=== PATIENT | male | born 1975 | race Caucasian/White ===

== ENCOUNTER 2019-05-24 22:01 | Emergency (ER) | payer BC ==
[~2019-05-24] VITALS: Ht 182.9 cm; Wt 113.4 kg
[2019-05-24] MEDS ORDERED: LORazepam 2MG/ML-1ML VIAL ONE (22:45)
[2019-05-24] MEDS ORDERED: LORazepam 2MG/ML-1ML VIAL IM ONE (22:45)
[2019-05-24 23:13] LABS: Basophils # (auto) 0.1 uL; Basophils % (auto) 0.9 % (0.0-2.0); Eosinophils # (auto) 0.2 uL; Eosinophils % (auto) 1.8 % (0.0-7.0); Hematocrit 51.1 % (41.0-53.0); Hemoglobin 17.6 g/dL (13.5-17.5); Lymphocytes # (auto) 2.7 uL; Lymphocytes % (auto) 28.5 % (10.0-50.0); Mean Corpuscular Hemoglobin 29.8 pg (28.0-32.0); Mean Corpuscular Hgb Conc. 34.5 g/dL (32.0-36.0); Mean Corpuscular Volume 86.3 fL (80.0-100.0); Monocytes # (auto) 0.7 uL; Monocytes % (auto) 7.8 % (0.0-12.0); Neutrophils # (auto) 5.8 uL; Nucleated Red Blood Cells % 0.1 %; Platelet Count (auto) 179 10^3/uL (140-450); Red Blood Cells 5.92 10^6/uL (4.5-5.90); Red Cell Distribution Width 13.3 % (11.8-14.3); White Blood Cell 9.5 10^3/uL (4.4-10.8)
[2019-05-24 23:16] LABS: Urine Bacteria NONE SEEN /hpf (None Seen); Urine Blood Negative /uL (Negative); Urine Specific Gravity 1.022 (1.001-1.035); Urine WBC <1 /hpf (0 - 3)
[2019-05-24 23:33] LABS: Alanine Aminotransferase 118 U/L (16-61); Albumin 4.1 g/dL (3.4-5.0); Anion Gap 6 (5-15); Aspartate Aminotransferase 43 U/L (15-37); BUN/Creatinine Ratio 11.9; Blood Alcohol < 3.0 mg/dL (0-5); Blood Urea Nitrogen 14 mg/dL (7-18); Calcium 9.2 mg/dL (8.5-10.1); Carbon Dioxide 29 mmol/L (21-32); Chloride 105 mmol/L (98-107); GFR African American 87 mL/min; GFR Non-African American 72 mL/min; Glucose 102 mg/dL (74-106); Potassium 4.3 mmol/L (3.5-5.1); Sodium 140 mmol/L (136-145)
[2019-05-24 23:34] LABS: Alcohol, Urine < 3.0 mg/dL (0-5); Amphetamine Screen, Urine NEGATIVE (NEGATIVE); Barbiturate Scree,Urine NEGATIVE (NEGATIVE); Benzodiazephine Screen, Urine NEGATIVE (NEGATIVE); Cannabinoid Screen, Urine NEGATIVE (NEGATIVE); Cocaine Screen, Urine NEGATIVE (NEGATIVE); Phencyclidine Screen, Urine NEGATIVE (NEGATIVE)
[2019-05-24 23:35] LABS: Salicylate < 1.7 mg/dL (2.8-20.0)
[2019-05-24 23:36] LABS: Acetaminophen < 2.0 ug/mL (10-30); Alkaline Phosphatase 108 U/L (45-117); Bilirubin, Total 0.5 mg/dL (0.2-1.0); Total Protein 7.4 g/dL (6.4-8.2)
[2019-05-24 23:36] LABS: Opiate Scree,Urine NEGATIVE (NEGATIVE)
[2019-05-25] MEDS ORDERED: LORazepam 0.5 MG TAB PO ONE (06:00)
[2019-05-25] MEDS ORDERED: LORazepam 0.5 MG TAB PO PRN (07:00)
[2019-05-25] MEDS ORDERED: risperiDONE 1 MG TAB PO SCH (10:00)
[2019-05-25 15:15] VITALS: BP 148/91
== END 2019-05-25 16:05 | disposition short-term general hospital (02) ==
LOC: ER 22:02
DX: R45.850 Homicidal ideations (principal); F12.10 Cannabis abuse, uncomplicated; F20.9 Schizophrenia, unspecified
CPT/HCPCS: 36415; 80053; 80307; 80320; 80329; 81001; 85025; 96372; 99285; J2060

== ENCOUNTER 2021-05-07 00:31 | Emergency (ER) | payer BC ==
[~2021-05-07] VITALS: Ht 182.9 cm; Wt 108.9 kg
[2021-05-07 01:16] LABS: Basophils # (auto) 0.1 10 ^3/uL (0-0.2); Eosinophils # (auto) 0.1 10 ^3/uL (0-0.8); Eosinophils % (auto) 1.7 % (0.0-7.0); Neutrophils # (auto) 5.4 10 ^3/uL (1.6-8.6); Red Cell Distribution Width 13.8 % (11.8-14.3)
[2021-05-07 01:17] LABS: Hematocrit 51.1 % (41.0-53.0); Hemoglobin 17.9 g/dL (13.5-17.5); Lymphocytes # (auto) 2.1 10 ^3/uL (0.4-5.4); Lymphocytes % (auto) 25.6 % (10.0-50.0); Mean Corpuscular Hemoglobin 30.2 pg (28.0-32.0); Mean Corpuscular Hgb Conc. 35.1 g/dL (32.0-36.0); Mean Corpuscular Volume 86.1 fL (80.0-100.0); Monocytes # (auto) 0.5 10 ^3/uL (0-1.3); Monocytes % (auto) 6.6 % (0.0-12.0); Neutrophils % (auto) 65.1 % (37.0-80.0); Nucleated Red Blood Cells % 0.6 %; Red Blood Cells 5.94 10^6/uL (4.5-5.90); White Blood Cell 8.3 10^3/uL (4.4-10.8)
[2021-05-07 01:31] LABS: Alanine Aminotransferase 158 U/L (16-61); Albumin 3.8 g/dL (3.4-5.0); Anion Gap 7 (5-15); Aspartate Aminotransferase 52 U/L (15-37); BUN/Creatinine Ratio 11.2; Blood Urea Nitrogen 12 mg/dL (7-18); Calcium 8.5 mg/dL (8.5-10.1); Carbon Dioxide 27 mmol/L (21-32); Chloride 104 mmol/L (98-107); GFR African American 97 mL/min; GFR Non-African American 80 mL/min; Glucose 152 mg/dL (74-106); Potassium 3.7 mmol/L (3.5-5.1); Sodium 138 mmol/L (136-145)
[2021-05-07 01:35] LABS: Alkaline Phosphatase 116 U/L (45-117); Bilirubin, Total 0.6 mg/dL (0.2-1.0); Total Protein 7.7 g/dL (6.4-8.2)
[2021-05-07 04:00] VITALS: BP 131/77
== END 2021-05-07 04:45 | disposition home or self-care (01) ==
LOC: ER 00:32
DX: R07.89 Other chest pain (principal); K21.9 Gastro-esophageal reflux disease without esophagitis; R11.2 Nausea with vomiting, unspecified; F32.9 Major depressive disorder, single episode, unspecified
CPT/HCPCS: 36415; 71045; 80053; 83690; 83735; 83880; 84484; 85025; 93005

== ENCOUNTER 2024-12-06 19:04 | Inpatient (IN) | payer BC ==
[~2024-12-06] VITALS: Ht 182.9 cm; Wt 113.6 kg
[2024-12-06] MEDS: SODIUM CHLORIDE 0.9% 1,000 ML IV ONE ×2 (20:00→23:45)
--- NOTE | 2024-12-06 20:09 | ED.PDOC ---
History of Present Illness HPI Comments 49-year-old male brought in by family complaining of epigastric and right upper quadrant pain radiating to both flanks intermittently for the past month. Patient states symptoms are associated with nausea, vomiting and diarrhea. Patient states the symptoms will last 2-3 days, then transiently resolve. He states the symptoms return 1 or 2 days later. Currently this episode has been going on for the last 2 days. He states he is unable to tolerate any food or liquids. He denies any fever or dysuria. Patient also reports a history of heavy alcohol use, however decreased his alcohol consumption about a month ago due to his symptoms. Chief Complaint: Abdominal Pain Time Seen by MD: 19:40 Primary Care Provider: NOEMY Reviewed Notes: Nurses Notes, Medications, Allergies Allergies: Coded Allergies: NO KNOWN ALLERGIES (Unverified , 05/24/19) Information Source: Patient Mode of Arrival: Ambulatory Severity: Moderate Timing: Weeks Duration: Intermittent Prehospital treatment: None Past Medical History PAST MEDICAL HISTORY: Depression Past Medical History (Other): obesity Surgical History (Other): C4-5 surgery Family History Family History: Family hx of heart [place] Family History (Other): schizophrenia Social History Smoker: Cigarettes Alcohol: Sober (former heavy user) Drugs: Marijuana Respiratory: reports: shortness of breath Gastrointestinal: reports: abdominal pain, diarrhea, nausea, vomiting Genitourinary: reports: flank pain All Other Systems: Reviewed and Negative (negative unless otherwise stated above or in HPI) Physical Exam General Appearance: No Apparent Distress, Obese HEENT: Other (Pupils and face symmetric, moist mucous membranes) Neck: Full Range of Motion, Normal Inspection Respiratory: Lungs Clear, No Accessory Muscle Use, No Respiratory Distress, Normal Breath Sounds Cardiovascular: No Edema, No JVD, Regular Rate/Rhythm Breast Exam: Deferred Gastrointestinal: Epigastric, RUQ, Soft, Tenderness Genitalia: Deferred Pelvic: Deferred Rectal: Deferred Extremities: Normal inspection, Normal range of motion, Non-tender, No pedal edema Neurologic: Alert (Oriented x4), Normal Affect, Normal Mood Cerebellar Function: NOT DONE Reflexes: NOT DONE Skin: Dry, Normal Color, Warm Lymphatic: NOT DONE Was a procedure done? Was a procedure done?: No Differential Dx Considerations may include: Biliary tract disease, pancreatitis, gastritis, gastroenteritis, diverticular disease, colitis, peptic ulcer disease, ischemic bowel, UTI, pyelonephritis, nephrolithiasis, electrolyte imbalance, hypovolemia, among others X-Ray, Labs, Meds, VS Vital Signs Date Time Temp Pulse Resp B/P (MAP) Pulse Ox O2 Delivery O2 Flow Rate FiO2 12/06/24 19:46 98.7 118 18 134/104 (114) 98 Lab Test 12/06/24 20:19 12/06/24 19:45 Range/Units White Blood Count 12.5 H 4.4-10.8 10^3/uL Red Blood Count 6.90 H 4.5-5.90 10^6/uL Hemoglobin 19.7 H 13.5-17.5 g/dL Hematocrit 59.8 H 41.0-53.0 % Mean Corpuscular Volume 86.7 80.0-100.0 fL Mean Corpuscular Hemoglobin 28.6 28.0-32.0 pg Mean Corpuscular Hemoglobin Concent 33.0 32.0-36.0 g/dL Red Cell Distribution Width 13.2 11.8-14.3 % Platelet Count 242 140-450 10^3/uL Mean Platelet Volume 9.4 6.9-10.8 fL Neutrophils (%) (Auto) 58.0 37.0-80.0 % Lymphocytes (%) (Auto) 28.5 10.0-50.0 % Monocytes (%) (Auto) 8.1 0.0-12.0 % Eosinophils (%) (Auto) 4.6 0.0-7.0 % Basophils (%) (Auto) 0.8 0.0-2.0 % Neutrophils # (Auto) 7.2 1.6-8.6 10 ^3/uL Lymphocytes # (Auto) 3.6 0.4-5.4 10 ^3/uL Monocytes # (Auto) 1.0 0-1.3 10 ^3/uL Eosinophils # (Auto) 0.6 0-0.8 10 ^3/uL Basophils # (Auto) 0.1 0-0.2 10 ^3/uL Nucleated Red Blood Cells 0.9 % Sodium Level 138 136-145 mmol/L Potassium Level 4.2 3.5-5.1 mmol/L Chloride Level 104 98-107 mmol/L Carbon Dioxide Level 25 20-31 mmol/L Anion Gap 9 5-15 Blood Urea Nitrogen 15 9-23 mg/dL Creatinine 1.27 0.700-1.30 mg/dL Glomerular Filtration Rate Calc 70 >90 mL/min BUN/Creatinine Ratio 11.8 10.0-20.0 Serum Glucose 89 74-106 mg/dL Hemoglobin A1c 5.0 <5.7 % A1C Lactic Acid Level 0.7 0.4-2.0 mmol/L Calcium Level 10.8 H 8.7-10.4 mg/dL Total Bilirubin 1.3 H 0.2-1.0 mg/dL Aspartate Amino Transferase (AST) 33 13-40 U/L Alanine Aminotransferase (ALT) 70 H 7-40 U/L Alkaline Phosphatase 89 46-116 U/L Troponin I High Sensitivity 3 L </=54 ng/L Total Protein 8.3 H 5.7-8.2 g/dL Albumin 5.4 H 3.2-4.8 g/dL Triglycerides Level Pending Cholesterol Level Pending LDL Cholesterol Pending HDL Cholesterol Pending Lipase 44 12-53 U/L Urine Color Yellow Yellow Urine Clarity Clear Clear Urine pH 5.5 5.0-9.0 Urine Specific [place] 1.029 1.001-1.035 Urine Protein Trace H Negative Urine Ketones Negative Negative Urine Blood Negative Negative /uL Urine Nitrite Negative Negative Urine Bilirubin Negative Negative Urine Urobilinogen Normal Negative mg/dL Urine Leukocyte Esterase Negative Negative /uL Urine RBC 1 0 - 3 /hpf Urine Microscopic WBC 1 0-3 /HPF Urine Squamous Epithelial Cells None seen <5 /hpf Urine Bacteria None seen None Seen /hpf Urine Mucus Few None Seen Urine Glucose Normal Normal mg/dL Current Medications Medications (Trade) Dose Ordered Sig/Ridge Route Start Time Stop Time Status Last Admin Sodium Chloride 1,000 ml @ 1,000 mls/hr Q1H ONCE IV 12/06/24 20:00 12/06/24 20:59 DC 12/06/24 20:00 Ondansetron HCl (Zofran) 4 mg ONCE ONCE IV 12/06/24 20:00 12/06/24 20:01 DC 12/07/24 01:01 Pantoprazole Sodium (Protonix) 40 mg ONCE ONCE IV 12/06/24 20:00 12/06/24 20:01 DC 12/07/24 01:01 Morphine Sulfate 4 mg ONCE ONCE IV 12/06/24 20:00 12/06/24 20:01 DC 12/07/24 01:02 [facility] [id number] [id number] Ph: [phone] DIAGNOSTIC IMAGING Diagnostic Imaging Report : [id number] Signed PATIENT: PADMA DAWKINS ACCT: [id number] UNIT: [id number] : 1975 LOC: ER ROOM / BED: / AGE / SEX: 49 / M ADM STATUS: REG ER SERVICE 46 ORDERING PHYSICIAN: CLARISSA FERNANDEZ MD PROCEDURE(s): ABPL - CT AB PEL WO CON-NO ORAL OR IV REASON: RUQ and bilat flank pain, n/v/d ORDER NUMBER(s): [id number], ACCESSION NUMBER(s): [id number] Exam: CT CT AB PEL WO CON-NO ORAL OR IV History: RUQ and bilat flank pain, n/v/d Comparison Study: None available at time of dictation. TECHNIQUE: Multidetector CT of the abdomen was performed from lung bases to pubic symphysis. Imaging was performed without IV contrast. Axial, coronal and sagittal multiplanar reformats were obtained from the axial data set by the technologist. Radiation Dose Information: CT Dose: CTDI volume is 21.57 mGy. Dose-length product is 1198.73 mGy*cm FINDINGS: Evaluation of solid organs is limited due to lack of intravenous contrast use. Findings: Lung Bases: No acute or significant lung base finding. Normal heart size. No pleural or pericardial effusion. Liver: The liver is normal in size. No focal lesions. Gallbladder and Biliary Tree: Gallbladder contracted no calcified gallstones Spleen: Unremarkable Pancreas: The pancreas is grossly normal in appearance. Adrenal Glands: Unremarkable Kidneys: No nephrolithiasis or hydronephrosis bilaterally. Bladder: Minimally distended with urine no calcifications. Bowel: The stomach is grossly normal in appearance. Small bowel and colon are normal in caliber and distribution. The appendix is not visualized; however, no secondary findings of acute appendicitis identified. Ascites: Absent Lymphadenopathy: No mesenteric, retroperitoneal or periportal lymphadenopathy. Abdominal Wall and Mesentery: Unremarkable. Vasculature: The visualized abdominal aorta is normal in size and caliber. Evaluation of abdominal and pelvic vessels is limited due to lack of intravenous contrast. Pelvic Organs: Unremarkable Musculoskeletal: No aggressive focal bony lesions, acute fractures or dislocation. Soft tissues: Unremarkable IMPRESSION: 1. Gallbladder contracted with no calcified gallstones 2. No calcified renal calculi bilaterally no hydronephrosis. 3. Minimal urine in the bladder with no calcifications present. 4. No findings to suggest bowel obstruction. 5. Stomach is distended with food and fluid. Radiation optimization: All CT scans at this facility use at least one of these dose optimization techniques: automated exposure control mA and/or kV adjustment per patient size (includes targeted exams where dose is matched to clinical indication) or iterative reconstruction. ATED BY: ANGEL BUENROSTRO Jr., DO DICTATED DATE/TIME: 12/06/242029 SIGNED BY: ANGEL BUENROSTRO Jr., SIGNED DATE/TIME: 12/06/242029 CC: X-Ray, Labs, Meds, VS Comment 49-year-old male with history of depression, obesity and prior heavy alcohol use presenting with epigastric and right upper quadrant pain radiating to both flanks, associated with nausea, vomiting and diarrhea intermittently for the past month Vitals remarkable for heart rate 118, BP 134/104 Exam remarkable for epigastric and right upper quadrant tenderness to palpation Rhythm strip independently interpreted by me: Sinus tach, rate 118, no ectopy. CT abdomen and pelvis: IMPRESSION: 1. Gallbladder contracted with no calcified gallstones 2. No calcified renal calculi bilaterally no hydronephrosis. 3. Minimal urine in the bladder with no calcifications present. 4. No findings to suggest bowel obstruction. 5. Stomach is distended with food and fluid. CBC remarkable for WBC 12.5, hemoglobin 19.7, hematocrit 59.8, CMP remarkable for total bili 1.3, ALT 70, lipase normal, lactate normal, troponin negative UA unremarkable Patient treated with the following in the ED: 1 L 0.9 normal saline IV bolus, morphine 4 mg IV, Zofran 4 mg IV, Protonix 40 mg IV On re-evaluation, pain has somewhat improved, vitals were stable. Plan is to admit the patient for pain and emesis control and GI evaluation. Time of 1ST Reevaluation: 20:10 Reevaluation 1ST: Unchanged Patient Education/Counseling: Diagnosis, Treatment Family Education/Counseling: No Family Present Departure 1 Departure Time of Disposition: 21:25 Impression: Primary Impression: Abdominal pain Qualified Codes: R10.11 - Right upper quadrant pain Additional Impression: Nausea vomiting and diarrhea Disposition: ADMITTED INPATIENT Admit to: Med Surg Condition: Guarded Critical Care Note Critical Care Time?: No Stability Stability form required: No Heart Score Heart Score: Heart Score Response (Comments) Value History N/A 0 EKG N/A 0 Age N/A 0 Risk Factors N/A 0 Troponin N/A 0 Total 0 I personally scribed for CLARISSA FERNANDEZ MD ([email or web address]) on 12/06/24 at 20:09. Electronically submitted by Chilo Olsen ([email or web address]). I personally scribed for CLARISSA FERNANDEZ MD ([email or web address]) on 12/06/24 at 20:38. Electronically submitted by Chilo Olsen ([email or web address]). CLARISSA FERNANDEZ MD Dec 06, 2024 20:09
[2024-12-06 20:30] LABS: Urine Bacteria None Seen /hpf (None Seen)
--- NOTE | 2024-12-06 20:32 | DVH ---
Exam: CT CT AB PEL WO CON-NO ORAL OR IV History: RUQ and bilat flank pain, n/v/d Comparison Study: None available at time of dictation. TECHNIQUE: Multidetector CT of the abdomen was performed from lung bases to pubic symphysis. Imaging was performed without IV contrast. Axial, coronal and sagittal multiplanar reformats were obtained fr om the axial data set by the technologist. Radiation Dose Information: CT Dose: CTDI volume is 21.57 mGy. Dose-length product is 1198.73 mGy*cm FINDINGS: Evaluation of solid organs is limited due to lack of intravenous contrast use. Findings: Lung Bases: No acute or significant lung base finding. Normal heart size. No pleural or pericardial effusion. Liver: The liver is normal in size. No focal lesions. Gallbladder and Biliary Tree: Gallbladder contracted no calcified gallstones Spleen: Unremarkable Pancreas: The pancreas is grossly normal in appearance. Adrenal Glands: Unremarkable Kidneys: No nephrolithiasis or hydronephrosis bilaterally. Bladder: Minimally distended with urine no calcifications. Bowel: The stomach is grossly normal in appearance. Small bowel and colon are normal in caliber and d istribution. The appendix is not visualized; however, no secondary findings of acute appendicitis id entified. Ascites: Absent Lymphadenopathy: No mesenteric, retroperitoneal or periportal lymphadenopathy. Abdominal Wall and Mesentery: Unremarkable. Vasculature: The visualized abdominal aorta is normal in size and caliber. Evaluation of abdominal a nd pelvic vessels is limited due to lack of intravenous contrast. Pelvic Organs: Unremarkable Musculoskeletal: No aggressive focal bony lesions, acute fractures or dislocation. Soft tissues: Unremarkable IMPRESSION: 1. Gallbladder contracted with no calcified gallstones 2. No calcified renal calculi bilaterally no hydronephrosis. 3. Minimal urine in the bladder with no calcifications present. 4. No findings to suggest bowel obstruction. 5. Stomach is distended with food and fluid. Radiation optimization: All CT scans at this facility use at least one of these dose optimization mik hniques: automated exposure control mA and/or kV adjustment per patient size (includes targeted exam s where dose is matched to clinical indication) or iterative reconstruction.
[2024-12-06 20:41] LABS: Basophils # (auto) 0.1 10 ^3/uL (0-0.2); Basophils % (auto) 0.8 % (0.0-2.0); Eosinophils # (auto) 0.6 10 ^3/uL (0-0.8); Eosinophils % (auto) 4.6 % (0.0-7.0); Hemoglobin 19.7 g/dL (13.5-17.5); Lymphocytes # (auto) 3.6 10 ^3/uL (0.4-5.4); Lymphocytes % (auto) 28.5 % (10.0-50.0); Mean Corpuscular Hemoglobin 28.6 pg (28.0-32.0); Mean Corpuscular Volume 86.7 fL (80.0-100.0); Monocytes % (auto) 8.1 % (0.0-12.0); Neutrophils # (auto) 7.2 10 ^3/uL (1.6-8.6); Nucleated Red Blood Cells % 0.9 %; Platelet Count (auto) 242 10^3/uL (140-450); Red Cell Distribution Width 13.2 % (11.8-14.3); White Blood Cell 12.5 10^3/uL (4.4-10.8)
[2024-12-06 20:42] LABS: Hematocrit 59.8 % (41.0-53.0)
[2024-12-06 20:46] LABS: Urine Blood Negative /uL (Negative); Urine Clarity Clear (Clear); Urine Color Yellow (Yellow); Urine Mucus FEW (None Seen); Urine Protein, UAD TRACE (Negative); Urine Specific Gravity 1.029 (1.001-1.035); Urine Squamous Epithelial Cell None Seen /hpf (<5); Urine Urobilinogen Normal (Negative); Urine pH 5.5 (5.0-9.0)
[2024-12-06 20:51] LABS: Alkaline Phosphatase 89 U/L (46-116); Anion Gap 9 (5-15); Aspartate Aminotransferase 33 U/L (13-40); BUN/Creatinine Ratio 11.8 (10.0-20.0); Blood Urea Nitrogen 15 mg/dL (9-23); Carbon Dioxide 25 mmol/L (20-31); Chloride 104 mmol/L (98-107); Glucose 89 mg/dL (74-106); Lipase 44 U/L (12-53); Potassium 4.2 mmol/L (3.5-5.1); Sodium 138 mmol/L (136-145)
[2024-12-06 21:01] LABS: Urine WBC 1 /HPF (0-3)
[2024-12-06 21:02] LABS: Alanine Aminotransferase 70 U/L (7-40); Albumin 5.4 g/dL (3.2-4.8); Bilirubin, Total 1.3 mg/dL (0.2-1.0); Calcium 10.8 mg/dL (8.7-10.4); Total Protein 8.3 g/dL (5.7-8.2)
[2024-12-06] MEDS ORDERED: ACETAMINOPHEN 325 MG TAB PO PRN (23:45)
--- NOTE | 2024-12-07 00:10 | DVHHPRES ---
History of Present Illness Resident Creating Document: GURVINDER MUNROE History of Present Illness This is a 49-year-old male with no significant past medical history of relevance presented to the ED with chief complaint of acute abdominal pain with intractable nausea and vomiting. The patient states that the pain started one month ago but is intermittent in nature and comes and goes. The patient states that the pain become worse yesterday associated with nausea, vomiting and single episode of diarrhea. The patient reports that the pain is localized in both right upper and left upper quadrants that radiates to bilateral flanks and back. The patient also reported that vomiting makes the pain better. The patient described the pain as sharp and burning in nature rated as a 7/10 on the pain scale. The patient denies fever/chills, dysuria or any other urinary symptoms, melena, hematemesis. We will labs showed a WBC of 12.5, BUN and creatinine were 15 and 1.27 respectively, AST was 33 but ALT was significantly elevated at 70. Troponins came back negative and urinalysis was negative as well. A CT scan of the abdomen and pelvis came back showing a gallbladder contracted with no calcified gallstones, no calcified renal calculi bilaterally, no hydronephrosis no SBO and no additional acute abdominopelvic disease. Upon my examination, the patient reported that he is currently pain-free and that has no symptoms at this time. We will order an ultrasound of the liver and gallbladder and further testing. We will admit the patient for further assessment and management. Past surgical history: Cervical fusion at the level of C4-C5 in 2004 No past medical history of relevance Home medications: None Stopped alcohol two months ago, denies drug consumption, reports stopping smoking Past Surgical History: Other (Cervical fusion at the level of C4-C5 and 2004) Family History: None Smoke: Quit ALCOHOL: rare Drugs: None Lives: with Family Domestic Violence: Neg Review of Systems Constitutional: No: Fever, Chills, Sweats, Weakness, Malaise, Other Eyes: No: Pain, Vision change, Conjunctivae inflammation, Eyelid inflammation, Other, Redness ENT: No: Ear pain, Ear discharge, Nose pain, Nose discharge, Nose congestion, Mouth pain, Mouth swelling, Throat pain, Throat swelling, Other Respiratory: No: Cough, Dry, Shortness of breath, SOB with excertion, Wheezing, Hemoptysis, Pleuritic Pain, Sputum, Wheezing, Other Cardiovascular: No: Chest Pain, Palpitations, Orthopnea, Paroxysmal Noc. Dyspnea, Edema, Lt Headedness, Other Gastrointestinal: No: Nausea, Vomiting, Abdominal Pain, Diarrhea, Constipation, Melena, Hematochezia, Other Genitourinary: No Dysuria, No Frequency, No Incontinence, No Hematuria, No Retention, No Other Musculoskeletal: No: other, neck pain, shoulder pain, arm pain, back pain, hand pain, leg pain, foot pain Skin: No: Rash, Lesions, Jaundice, Bruising, Other Neurological: No: Weakness, Numbness, Incoordination, Change in speech, Confusion, Seizures, Other Allergies: Coded Allergies: NO KNOWN ALLERGIES (Unverified , 05/24/19) Exam Vital Signs Vital Signs Date Time Temp Pulse Resp B/P (MAP) Pulse Ox O2 Delivery O2 Flow Rate FiO2 12/06/24 19:46 98.7 118 18 134/104 (114) 98 General Appearance: Alert, Oriented X3, Cooperative, No acute distress, mild distress HEENT: Atraumatic, PERRLA, EOMI, Mucous membr. moist/pink Respiratory: Clear to auscultation, Normal air movement Cardiovascular: Regular rate, Normal S1, Normal S2, No murmurs Abdominal: Normal bowel sounds, Soft, No tenderness, No hepatospenomegaly Extremities: No clubbing, No cyanosis, No edema, Normal pulses, No tenderness/swelling Skin: No rashes, No breakdown, No significant lesion Neuro: Normal gait, Normal speech, Strength at 5/5 X4 ext, Normal tone, Sensation intact, Cranial nerves 3-12 NL, Reflexes 2+ Psych/Mental Status: Mental status NL, Mood NL Labs/Xrays Labs Test 12/06/24 20:19 12/06/24 19:45 Range/Units White Blood Count 12.5 H 4.4-10.8 10^3/uL Red Blood Count 6.90 H 4.5-5.90 10^6/uL Hemoglobin 19.7 H 13.5-17.5 g/dL Hematocrit 59.8 H 41.0-53.0 % Mean Corpuscular Volume 86.7 80.0-100.0 fL Mean Corpuscular Hemoglobin 28.6 28.0-32.0 pg Mean Corpuscular Hemoglobin Concent 33.0 32.0-36.0 g/dL Red Cell Distribution Width 13.2 11.8-14.3 % Platelet Count 242 140-450 10^3/uL Mean Platelet Volume 9.4 6.9-10.8 fL Neutrophils (%) (Auto) 58.0 37.0-80.0 % Lymphocytes (%) (Auto) 28.5 10.0-50.0 % Monocytes (%) (Auto) 8.1 0.0-12.0 % Eosinophils (%) (Auto) 4.6 0.0-7.0 % Basophils (%) (Auto) 0.8 0.0-2.0 % Neutrophils # (Auto) 7.2 1.6-8.6 10 ^3/uL Lymphocytes # (Auto) 3.6 0.4-5.4 10 ^3/uL Monocytes # (Auto) 1.0 0-1.3 10 ^3/uL Eosinophils # (Auto) 0.6 0-0.8 10 ^3/uL Basophils # (Auto) 0.1 0-0.2 10 ^3/uL Nucleated Red Blood Cells 0.9 % Sodium Level 138 136-145 mmol/L Potassium Level 4.2 3.5-5.1 mmol/L Chloride Level 104 98-107 mmol/L Carbon Dioxide Level 25 20-31 mmol/L Anion Gap 9 5-15 Blood Urea Nitrogen 15 9-23 mg/dL Creatinine 1.27 0.700-1.30 mg/dL Glomerular Filtration Rate Calc 70 >90 mL/min BUN/Creatinine Ratio 11.8 10.0-20.0 Serum Glucose 89 74-106 mg/dL Lactic Acid Level 0.7 0.4-2.0 mmol/L Calcium Level 10.8 H 8.7-10.4 mg/dL Total Bilirubin 1.3 H 0.2-1.0 mg/dL Aspartate Amino Transferase (AST) 33 13-40 U/L Alanine Aminotransferase (ALT) 70 H 7-40 U/L Alkaline Phosphatase 89 46-116 U/L Troponin I High Sensitivity 3 L </=54 ng/L Total Protein 8.3 H 5.7-8.2 g/dL Albumin 5.4 H 3.2-4.8 g/dL Lipase 44 12-53 U/L Urine Color Yellow Yellow Urine Clarity Clear Clear Urine pH 5.5 5.0-9.0 Urine Specific [place] 1.029 1.001-1.035 Urine Protein Trace H Negative Urine Ketones Negative Negative Urine Blood Negative Negative /uL Urine Nitrite Negative Negative Urine Bilirubin Negative Negative Urine Urobilinogen Normal Negative mg/dL Urine Leukocyte Esterase Negative Negative /uL Urine RBC 1 0 - 3 /hpf Urine Microscopic WBC 1 0-3 /HPF Urine Squamous Epithelial Cells None seen <5 /hpf Urine Bacteria None seen None Seen /hpf Urine Mucus Few None Seen Urine Glucose Normal Normal mg/dL Assessment/Plan Assessment/Plan Assessment/Plan Acute abdominal pain with intractable nausea and vomiting likely due to gastroenteritis R/O cholecystitis -initial WBC 12.5 -gave 1 L of IV fluids bolus -start IV fluids at 100 cc/hour -ordered lipase came back at 44 -CT of the abdomen and pelvis showed no significant acute intra-abdominal disease. -ALT was elevated at 70, ordered abdominal ultrasound with liver protocol and to assess for cholelithiasis/cholecystitis -Start IV pantoprazole 40mg daily DINORA likely due to dehydration (VMN) -Cr 1.27, BUN 15 -IV fluids at 100cc/hr -Monitor kidney function Acute transaminitis -Ast 33, ALT 70 -Monitor liver function -Ordered Hepatitis panel Alcohol and smoking cessation -Track Service Person on smoking and alcohol cessation > 8min, patient states he already stopped Goals of care discussed with the patient for > 30min, FULL CODE Plan discussed with Dr. iRvas Plan discussed with: Patient My Orders Orders - GURVINDER MUNROE RESIDENT Procedure Category Date Status Time Sodium Chloride 0.9% [facility] 12/06/24 In Process 23:45 Abdomen Limited US 12/06/24 Logged 23:40 Admit ADMIT 12/06/24 Transmitted 23:42 Code Status CODE 12/06/24 Transmitted 23:42 Vital Signs [facility] 12/06/24 Transmitted 23:42 Review Orders With [facility] 12/06/24 Transmitted Adm. 23:42 Encourage Activity As ERMA 12/06/24 Transmitted Tolerate 23:42 Acetaminophen Tablet PHA 12/06/24 Transmitted (Tylenol Tablet) 23:45 Notify Of Changes [facility] 12/06/24 Transmitted From Base 23:42 Advance Directive [facility] 12/06/24 Transmitted 23:42 Urinalysis LAB 12/06/24 Verified 23:42 Lipid Panel LAB 12/06/24 Verified 23:42 Patient Condition ORDERS 12/06/24 Verified 23:42 Allergies ERMA 12/06/24 Verified 23:42 Ondansetron Hcl PHA 12/06/24 Verified (Quitafryessenia) 23:45 Drug Screen LAB 12/06/24 Verified 23:42 Hemoglobin A1c LAB 12/06/24 Verified 23:42 Date of Service: Dec 06, 2024 Billing Provider: YAN RIVAS MD Common Visit Codes: [id number] INP/OBS CARE (HIGH) GURVINDER MUNROE RESIDENT Dec 07, 2024 00:10 YAN RIVAS MD Dec 07, 2024 08:43
[2024-12-07] MEDS: PANTOPRAZOLE 40 MG/10 ML VIAL INJ IV ONE (01:01)
[2024-12-07] MEDS: ONDANSETRON HCL 4 MG/2 ML VIAL IV ONE (01:01)
[2024-12-07] MEDS: MORPHINE SULFATE 4 MG/ML SYR/VIAL IV ONE (01:02)
[2024-12-07 01:10] VITALS: PULSE 110; RESP 20; O2SAT 98
[2024-12-07] MEDS: ONDANSETRON HCL 4 MG/2 ML VIAL IV PRN (02:13)
[2024-12-07] MEDS: KETOROLAC TROMETH 30 MG/ML 1ML VIAL IV ONE (04:50)
--- NOTE | 2024-12-07 06:55 | DVH ---
EXAM: US Abdomen Limited, Right Upper Quadrant CLINICAL INDICATION: Acute abd pain TECHNIQUE: Real-time ultrasound of the right upper quadrant with image documentation. COMPARISON: None FINDINGS: LIVER: Liver measures 16.9 cm. Fatty infiltration of the liver. No intrahepatic bile duct dilatio n. GALLBLADDER: Gallbladder sludge. Negative Sherman's sign was reported by the redevelopment manager. No galls tones. COMMON BILE DUCT: Unremarkable as visualized. No stones. No dilation. Common bile duct measures 0.27 cm in diameter. PANCREAS: Unremarkable as visualized. RIGHT KIDNEY: Right kidney measures up to 10.1 cm. No stones. No hydronephrosis. OTHER FINDINGS: . . . IMPRESSION: 1. Fatty infiltration of the liver. 2. Gallbladder sludge.
[2024-12-07 06:57] LABS: Basophils # (auto) 0.1 10 ^3/uL (0-0.2); Eosinophils # (auto) 0.8 10 ^3/uL (0-0.8)
[2024-12-07 07:00] LABS: Hemoglobin 18.6 g/dL (13.5-17.5); Lymphocytes # (auto) 2.8 10 ^3/uL (0.4-5.4); Lymphocytes % (auto) 23.2 % (10.0-50.0); Mean Corpuscular Hemoglobin 29.1 pg (28.0-32.0); Mean Corpuscular Hgb Conc. 33.3 g/dL (32.0-36.0); Mean Corpuscular Volume 87.5 fL (80.0-100.0); Monocytes # (auto) 0.9 10 ^3/uL (0-1.3); Monocytes % (auto) 7.6 % (0.0-12.0); Neutrophils # (auto) 7.3 10 ^3/uL (1.6-8.6); Neutrophils % (auto) 61.2 % (37.0-80.0); Nucleated Red Blood Cells % 0.3 %; Platelet Count (auto) 216 10^3/uL (140-450); Red Cell Distribution Width 13.3 % (11.8-14.3); White Blood Cell 11.9 10^3/uL (4.4-10.8)
[2024-12-07 07:08] LABS: Anion Gap 10 (5-15); Carbon Dioxide 22 mmol/L (20-31); Chloride 105 mmol/L (98-107); Sodium 137 mmol/L (136-145)
[2024-12-07 07:09] LABS: Calcium 10.2 mg/dL (8.7-10.4)
[2024-12-07 07:14] LABS: BUN/Creatinine Ratio 11.5 (10.0-20.0); Blood Urea Nitrogen 16 mg/dL (9-23); Glucose 102 mg/dL (74-106)
[2024-12-07 07:15] LABS: Potassium 5.3 mmol/L (3.5-5.1)
[2024-12-07 07:55] VITALS: BP 114/64; PULSE 73; RESP 16; TEMP 97.9; O2SAT 97
[2024-12-07] MEDS: cefTRIAXone 1GM/50ML D5W 50 ML IV ONE (08:01)
[2024-12-07] MEDS ORDERED: SODIUM CHLORIDE 0.9% 1,000 ML IV SCH (08:45)
[2024-12-07] MEDS ORDERED: PANTOPRAZOLE 40 MG/10 ML VIAL INJ IV SCH (10:00)
--- NOTE | 2024-12-07 12:19 | DVHDSRES ---
Discharge Summary Date of Admission Resident Creating Document: GURVINDER MUNROE RESIDENT Dec 06, 2024 at 23:42 Date of Discharge: Dec 07, 2024 Admitting Diagnosis Intractable abdominal pain likely due to acute gastroenteritis Labs/Diagnostic Data: Laboratory Results Test 12/07/24 10:15 12/07/24 03:46 12/06/24 20:19 12/06/24 19:45 Plasma/Serum Blood Alcohol < 3.0 mg/dL (<10) White Blood Count 11.9 10^3/uL (4.4-10.8) Red Blood Count 6.40 10^6/uL (4.5-5.90) Hemoglobin 18.6 g/dL (13.5-17.5) Hematocrit 56.0 % (41.0-53.0) Mean Corpuscular Volume 87.5 fL (80.0-100.0) Mean Corpuscular Hemoglobin 29.1 pg (28.0-32.0) Mean Corpuscular Hemoglobin Concent 33.3 g/dL (32.0-36.0) Red Cell Distribution Width 13.3 % (11.8-14.3) Platelet Count 216 10^3/uL (140-450) Mean Platelet Volume 9.6 fL (6.9-10.8) Neutrophils (%) (Auto) 61.2 % (37.0-80.0) Lymphocytes (%) (Auto) 23.2 % (10.0-50.0) Monocytes (%) (Auto) 7.6 % (0.0-12.0) Eosinophils (%) (Auto) 7.0 % (0.0-7.0) Basophils (%) (Auto) 1.0 % (0.0-2.0) Neutrophils # (Auto) 7.3 10 ^3/uL (1.6-8.6) Lymphocytes # (Auto) 2.8 10 ^3/uL (0.4-5.4) Monocytes # (Auto) 0.9 10 ^3/uL (0-1.3) Eosinophils # (Auto) 0.8 10 ^3/uL (0-0.8) Basophils # (Auto) 0.1 10 ^3/uL (0-0.2) Nucleated Red Blood Cells 0.3 % Sodium Level 137 mmol/L (136-145) Potassium Level 5.3 mmol/L (3.5-5.1) Chloride Level 105 mmol/L (98-107) Carbon Dioxide Level 22 mmol/L (20-31) Anion Gap 10 (5-15) Blood Urea Nitrogen 16 mg/dL (9-23) Creatinine 1.39 mg/dL (0.700-1.30) Glomerular Filtration Rate Calc 63 mL/min (>90) BUN/Creatinine Ratio 11.5 (10.0-20.0) Serum Glucose 102 mg/dL (74-106) Calcium Level 10.2 mg/dL (8.7-10.4) Magnesium Level 2.2 mg/dL (1.6-2.6) Troponin I High Sensitivity < 3 ng/L (</=54) Hemoglobin A1c 5.0 % A1C (<5.7) Lactic Acid Level 0.7 mmol/L (0.4-2.0) Total Bilirubin 1.3 mg/dL (0.2-1.0) Aspartate Amino Transferase (AST) 33 U/L (13-40) Alanine Aminotransferase (ALT) 70 U/L (7-40) Alkaline Phosphatase 89 U/L (46-116) Total Protein 8.3 g/dL (5.7-8.2) Albumin 5.4 g/dL (3.2-4.8) Lipase 44 U/L (12-53) Urine Color Yellow (Yellow) Urine Clarity Clear (Clear) Urine pH 5.5 (5.0-9.0) Urine Specific [place] 1.029 (1.001-1.035) Urine Protein Trace (Negative) Urine Ketones Negative (Negative) Urine Blood Negative /uL (Negative) Urine Nitrite Negative (Negative) Urine Bilirubin Negative (Negative) Urine Urobilinogen Normal mg/dL (Negative) Urine Leukocyte Esterase Negative /uL (Negative) Urine RBC 1 /hpf (0 - 3) Urine Microscopic WBC 1 /HPF (0-3) Urine Squamous Epithelial Cells None seen /hpf (<5) Urine Bacteria None seen /hpf (None Seen) Urine Mucus Few (None Seen) Urine Glucose Normal mg/dL (Normal) Other Laboratory Tests 12/07/24 03:46 Brief Hx & Hospital Course: This is a 49-year-old male with no significant past medical history of relevance presented to the ED with chief complaint of acute abdominal pain with intractable nausea and vomiting. The patient states that the pain started one month ago but is intermittent in nature and comes and goes. The patient states that the pain become worse yesterday associated with nausea, vomiting and single episode of diarrhea. The patient reports that the pain is localized in both right upper and left upper quadrants that radiates to bilateral flanks and back. The patient also reported that vomiting makes the pain better. The patient described the pain as sharp and burning in nature rated as a 7/10 on the pain scale. The patient denies fever/chills, dysuria or any other urinary symptoms, melena, hematemesis. We will labs showed a WBC of 12.5, BUN and creatinine were 15 and 1.27 respectively, AST was 33 but ALT was significantly elevated at 70. Troponins came back negative and urinalysis was negative as well. A CT scan of the abdomen and pelvis came back showing a gallbladder contracted with no calcified gallstones, no calcified renal calculi bilaterally, no hydronephrosis no SBO and no additional acute abdominopelvic disease. Upon my examination, the patient reported that he is currently pain-free and that has no symptoms at this time. Hospital course-patient came with acute abdominal pain for last 1 month which got worse for last 2 days with intractable nausea and vomiting and also diarrhea. Patient was admitted at the hospital for acute intractable abdominal pain likely due to acute gastroenteritis. Patient reported use of steroid before. labs showed a WBC of 12.5, BUN and creatinine were 15 and 1.27 respectively, AST was 33 but ALT was significantly elevated at 70. Troponins came back negative and urinalysis was negative as well. A CT scan of the abdomen and pelvis came back showing a gallbladder contracted with no calcified gallstones, no calcified renal calculi bilaterally, no hydronephrosis no SBO and no additional acute abdominopelvic disease. Patient was treated conservatively but patient left against medical advice AMA and patient's condition undetermined on discharge. Diagnosis Sepsis likely due to acute gastroenteritis Intractable abdominal pain likely due to acute gastroenteritis DINORA likely due to VMN Leukocytosis likely due to sepsis Polycythemia likely due to steroid abuse Abdominal pain likely due to IBD/IBS Elevated bilirubin and ALT Fatty liver Gallbladder sludge Discharge plan Patient left AMA Operations or Procedures [address] [address] Ph: [phone] DIAGNOSTIC IMAGING Diagnostic Imaging Report : [id number] Signed PATIENT: PADMA DAWKINS ACCT: [id number] UNIT: [id number] : 1975 LOC: OVERFLOW ROOM / BED: [facility] / A AGE / SEX: 49 / M ADM STATUS: ADM IN SERVICE 9 ORDERING PHYSICIAN: GURVINDER MUNROE PROCEDURE(s): ABDL - ABDOMEN LIMITED REASON: Acute abd pain ORDER NUMBER(s): [id number], ACCESSION NUMBER(s): [id number] EXAM: US Abdomen Limited, Right Upper Quadrant CLINICAL INDICATION: Acute abd pain TECHNIQUE: Real-time ultrasound of the right upper quadrant with image documentation. COMPARISON: None FINDINGS: LIVER: Liver measures 16.9 cm. Fatty infiltration of the liver. No intrahepatic bile duct dilation. GALLBLADDER: Gallbladder sludge. Negative Sherman's sign was reported by the poke in. No gallstones. COMMON BILE DUCT: Unremarkable as visualized. No stones. No dilation. Common bile duct measures 0.27 cm in diameter. PANCREAS: Unremarkable as visualized. RIGHT KIDNEY: Right kidney measures up to 10.1 cm. No stones. No hydronephrosis. OTHER FINDINGS: . . . IMPRESSION: 1. Fatty infiltration of the liver. 2. Gallbladder sludge. ATED BY: NILSON KRAFT MD DICTATED DATE/TIME: 12/07/24651 SIGNED BY: NILSON KRAFT MD SIGNED DATE/TIME: 12/07/24651 CC: [place] [id number] Ph: [phone] DIAGNOSTIC IMAGING Diagnostic Imaging Report : [id number] Signed PATIENT: PADMA DAWKINS ACCT: [id number] UNIT: [id number] : 1975 LOC: ER ROOM / BED: / AGE / SEX: 49 / M ADM STATUS: REG ER SERVICE 46 ORDERING PHYSICIAN: CLARISSA FERNANDEZ MD PROCEDURE(s): ABPL - CT AB PEL WO CON-NO ORAL OR IV REASON: RUQ and bilat flank pain, n/v/d ORDER NUMBER(s): [id number], ACCESSION NUMBER(s): [id number] Exam: CT CT AB PEL WO CON-NO ORAL OR IV History: RUQ and bilat flank pain, n/v/d Comparison Study: None available at time of dictation. TECHNIQUE: Multidetector CT of the abdomen was performed from lung bases to pubic symphysis. Imaging was performed without IV contrast. Axial, coronal and sagittal multiplanar reformats were obtained from the axial data set by the technologist. Radiation Dose Information: CT Dose: CTDI volume is 21.57 mGy. Dose-length product is 1198.73 mGy*cm FINDINGS: Evaluation of solid organs is limited due to lack of intravenous contrast use. Findings: Lung Bases: No acute or significant lung base finding. Normal heart size. No pleural or pericardial effusion. Liver: The liver is normal in size. No focal lesions. Gallbladder and Biliary Tree: Gallbladder contracted no calcified gallstones Spleen: Unremarkable Pancreas: The pancreas is grossly normal in appearance. Adrenal Glands: Unremarkable Kidneys: No nephrolithiasis or hydronephrosis bilaterally. Bladder: Minimally distended with urine no calcifications. Bowel: The stomach is grossly normal in appearance. Small bowel and colon are normal in caliber and distribution. The appendix is not visualized; however, no secondary findings of acute appendicitis identified. Ascites: Absent Lymphadenopathy: No mesenteric, retroperitoneal or periportal lymphadenopathy. Abdominal Wall and Mesentery: Unremarkable. Vasculature: The visualized abdominal aorta is normal in size and caliber. Evaluation of abdominal and pelvic vessels is limited due to lack of intravenous contrast. Pelvic Organs: Unremarkable Musculoskeletal: No aggressive focal bony lesions, acute fractures or dislocation. Soft tissues: Unremarkable IMPRESSION: 1. Gallbladder contracted with no calcified gallstones 2. No calcified renal calculi bilaterally no hydronephrosis. 3. Minimal urine in the bladder with no calcifications present. 4. No findings to suggest bowel obstruction. 5. Stomach is distended with food and fluid. Radiation optimization: All CT scans at this facility use at least one of these dose optimization techniques: automated exposure control mA and/or kV adjustment per patient size (includes targeted exams where dose is matched to clinical indication) or iterative reconstruction. ATED BY: ANGEL BUENROSTRO Jr., DO DICTATED DATE/TIME: 12/06/242029 SIGNED BY: ANGEL BUENROSTRO Jr., SIGNED DATE/TIME: 12/06/242029 CC: Condition at Discharge: Undetermined Final Diagnosis/Problems List Sepsis likely due to acute gastroenteritis Intractable abdominal pain likely due to acute gastroenteritis DINORA likely due to VMN Leukocytosis likely due to sepsis Polycythemia likely due to steroid abuse Abdominal pain likely due to IBD/IBS Elevated bilirubin and ALT Fatty liver Gallbladder sludge Discharge Disposition: AMA Discharge Statement: "Patient was advised to return to the ER or call 911 if any headaches, dizziness, shortness of breath, chest pain, abdominal pain, bleeding, fevers, or worsening of medical condition. Patient was counseled about treatment plan, medications, possible side effects, patientverbalized understanding. All questions were answered to the best of my ability. This discharge took greater then 30 minutes in planning, reviewing documentation, counseling the patient, and discussing with other team members." ASSESSMENT ASSESSMENT Assessment YOLY SOLIS RESIDENT Dec 07, 2024 12:19
[2024-12-07 15:41] LABS: HDL Cholesterol 50 mg/dL (40-59)
[2024-12-07 15:53] LABS: Cholesterol 295 mg/dL (< 200); LDL Cholesterol 232 mg/dL (< 100); Triglycerides 209 mg/dL (< 150)
[2024-12-07 16:24] LABS: Amphetamine Screen, Urine Neg (NEGATIVE); Barbiturate Scree,Urine Neg (NEGATIVE); Benzodiazephine Screen, Urine Neg (NEGATIVE); Cannabinoid Screen, Urine Neg (NEGATIVE); Cocaine Screen, Urine Neg (NEGATIVE); Opiate Scree,Urine Neg (NEGATIVE); Phencyclidine Screen, Urine Neg (NEGATIVE)
[2024-12-09 09:27] LABS: Hepatitis B Surface Antigen Negative (Negative)
[2024-12-09 09:33] LABS: Hepatitis A Ab IgM Negative; Hepatitis B Core IgM Negative (Negative); Hepatitis C Antibody Negative (Negative)
== END 2024-12-07 10:27 | disposition left against medical advice (07) | DRG 871 ==
LOC: ER 19:04 → OVERFLOW 23:42
PROVIDERS: ADMIT Student in an Organized Health Care Education/Training Program; ATTEND Emergency Medicine
DX: A41.9 Sepsis, unspecified organism (principal); N17.0 Acute kidney failure with tubular necrosis; K52.9 Noninfective gastroenteritis and colitis, unspecified; F32.A Depression, unspecified; D75.1 Secondary polycythemia; T38.0X5A Adverse effect of glucocorticoids and synthetic analogues, initial encounter; Z53.29 Procedure and treatment not carried out because of patient's decision for other reasons; K76.0 Fatty (change of) liver, not elsewhere classified; F17.210 Nicotine dependence, cigarettes, uncomplicated; R74.01 Elevation of levels of liver transaminase levels; E66.9 Obesity, unspecified; Z81.8 Family history of other mental and behavioral disorders; Z71.41 Alcohol abuse counseling and surveillance of alcoholic; Y92.89 Other specified places as the place of occurrence of the external cause; Z68.34 Body mass index [BMI] 34.0-34.9, adult
CPT/HCPCS: 36415; 74176; 76705; 80048; 80053; 80061; 80074; 80307; 80320; 81001; 83036; 83605; 83690; 83735; 84484; 85025; 96360; G0378; J1885; J2405; J2470